=== PATIENT | female | born 1960 | race Caucasian/White ===

== ENCOUNTER 2017-06-08 05:32 | Outpatient (CLI) | payer BC ==
[~2017-06-08] VITALS: Ht 149.9 cm; Wt 108.9 kg
[~2017-06-08 05:32] MED LIST: ATEN50TA; DIPH25TA82; FAMO20TA5; FLUO20CA25; GABA100C; IBP600T1; LRT10T; LVT.05T PO; OMEG1CAP51; TRAM-21
[2017-06-08] MEDS ORDERED: ALPR0.5T PO (09:49)
[2017-06-08] MEDS ORDERED: OXC10TCR PO (09:49)
[2017-06-08] MEDS ORDERED: ATEN50TA PO (09:49)
[2017-06-08] MEDS ORDERED: LUTE1CAP4 PO (09:49)
[2017-06-08] MEDS ORDERED: MULT-985 PO (09:49)
[2017-06-08] MEDS ORDERED: CALC-823 PO (09:49)
[2017-06-08] MEDS ORDERED: FLUO20CA42 PO (09:49)
[2017-06-08] MEDS ORDERED: TRAM50TA2 PO (09:49)
[2017-06-08] MEDS ORDERED: LEVO50TA6 PO (09:49)
[2017-06-08] MEDS ORDERED: TURM500C4 PO (09:49)
[2017-06-08] MEDS ORDERED: BRIN8DRO OP (09:49)
[2017-06-08] MEDS ORDERED: OMEP20CA12 PO (09:49)
[2017-06-08] MEDS ORDERED: DIPH25TA31 PO (09:49)
[2017-06-08] MEDS ORDERED: LORA10TA7 PO (09:49)
[2017-06-08] MEDS ORDERED: ASPI-586 PO (09:49)
[2017-06-08] MEDS ORDERED: L.AC1CAP6 PO (09:49)
[2017-06-08] MEDS ORDERED: MELO15TA39 PO (09:49)
[2017-06-08] MEDS ORDERED: GABA-488 PO (09:49)
[2017-06-08] MEDS ORDERED: MULT-35 PO (09:49)
== END 2017-06-08 09:57 ==
LOC: PREOP 05:32
PROVIDERS: ATTEND Surgery
DX: Z01.818 Encounter for other preprocedural examination (principal); R13.10 Dysphagia, unspecified; K21.9 Gastro-esophageal reflux disease without esophagitis

== ENCOUNTER 2017-06-15 09:54 | Day surgery (SDC) | payer BC ==
[~2017-06-15] VITALS: Ht 149.9 cm; Wt 108.9 kg
[~2017-06-15 09:54] MED LIST changes: +ALPR0.5T PO; +ASPI-586 PO; +ATEN50TA PO; +BRIN8DRO OP; +CALC-823 PO; +DIPH25TA31 PO; +FLUO20CA42 PO; +GABA-488 PO; +L.AC1CAP6 PO; +LEVO50TA6 PO; +LORA10TA7 PO; +LUTE1CAP4 PO; +MELO15TA39 PO; +MULT-35 PO; +MULT-985 PO; +OMEP20CA12 PO; +OXC10TCR PO; +TRAM50TA2 PO; +TURM500C4 PO
--- NOTE | 2017-06-15 10:05 | Conscious Sedation/ASA ---
Conscious Sedation Pre-Proced Time Reviewed: 10:00 ASA Class: 2 Airway Mallampati Classification: (lower [place] appropriate class) I. II. III, IV Lungs Heart ASA score ASA 1: a normal healthy patient ASA 2: a patient with a mild systemic disease (mid diabetes, controlled hypertension, obesity ASA 3: a patient with a severe systemic disease that limits activity (angina , COPD, prior Myocardial infarction) ASA 4: a patient with an incapacitating disease that is a constant threat to life (CHF, renal failure) ASA 5: a moribund patient not expected to survive 24 hrs. (ruptured aneurysm) ASA 6: a declared brain patient whose organs are being harvested. For emergent operations, add the letter E after the classification Grade 3 Sedation Plan: Analgesia, Amnesia, Plan communicated to team members, Discussed options with patient/fam, Discussed risks with patient/fam Note The patient is an appropriate candidate to undergo the planned procedure, sedation, and anesthesia. The patient immediately re-assessed prior to indication. AUGIE SETHI MD Jun 15, 2017 10:05 am
--- NOTE | 2017-06-15 10:06 | Progress Note-Pre Operative ---
Pre-Operative Progress Note H&P Reviewed The H&P was reviewed, patient examined and no changes noted. Date Seen by Provider: Jun 15, 2017 Time Seen by Provider: 10:00 Date H&P Reviewed: Jun 15, 2017 Time H&P Reviewed: 10:00 Pre-Operative Diagnosis: dysphagia AUGIE SETHI MD Jun 15, 2017 10:06 am
[2017-06-15] MEDS ORDERED: LIDOCAINE JELLY 2% (XYLOCAINE) 5 ML TUBE MM PRN (10:15)
[2017-06-15] MEDS ORDERED: HURRICAINE EXT TUBE (BENZOCAINE) XX PRN (10:15)
[2017-06-15] MEDS ORDERED: ONDANSETRON 4 MG/2 ML (SDV) Z0FRAN IV PRN (10:15)
[2017-06-15] MEDS ORDERED: HYDROcodone/APAP 5 MG/325 MG (LORTAB) TAB PO PRN (10:15)
[2017-06-15] MEDS ORDERED: ACETAMINOPHEN 325 MG TABLET/CAPLET (TYLENOL) PO PRN (10:15)
[2017-06-15] MEDS ORDERED: fentaNYL INJECTION 100 MCG/2 ML AMP IVP PRN (10:15)
[2017-06-15 10:18] VITALS: BP 168/94
[2017-06-15] MEDS ORDERED: HURRICAINE EXT TUBE (BENZOCAINE) ONE (10:29)
[2017-06-15] MEDS ORDERED: LIDOCAINE JELLY 2% (XYLOCAINE) 5 ML TUBE ONE (10:29)
[2017-06-15] MEDS ORDERED: MIDAZOLAM 2 MG/2 ML (VERSED) VIAL ONE ×4 (10:29)
[2017-06-15] MEDS ORDERED: fentaNYL INJECTION 100 MCG/2 ML AMP ONE (10:29)
[2017-06-15] MEDS ORDERED: NS IV 500 ML 500 ML IV PRN (10:30)
[2017-06-15] MEDS: fentaNYL INJECTION 100 MCG/2 ML AMP IVP PRN ×2 (10:59→11:11)
[2017-06-15] MEDS: MIDAZOLAM 2 MG/2 ML (VERSED) VIAL IVP PRN ×3 (11:00→11:15)
--- NOTE | 2017-06-15 11:34 | Progress Note-Post Operative ---
Post-Operative Progess Note Surgeon (s)/Larriman (s) Surgeon AUGIE SETHI MD Larriman: none Pre-Operative Diagnosis dysphagia Post-Operative Diagnosis achalasia, reflux esophagitis(class B), no HH, mild gastritis. Procedure & Operative Findings Date of Procedure 06/15/17 Procedure Performed/Findings EGD with bx and dilatation. Anesthesia Type CS Estimated Blood Loss Estimated blood loss (mL): minimal Specimens/Packing Specimens Removed GE jxn, antrum AUGIE SETHI MD Jun 15, 2017 11:34 am
--- NOTE | 2017-06-15 11:36 | Discharge Inst-Surgical ---
D/C Lap Instructions-JOSSIE Follow Up PRN Activity as tolerated High Fiber Diet 25g or more per day Avoid Alcohol, Caffeine, Spicy [place] and Acid foods. Drink 64 fluid oz or more of fluids per day. Symptoms to Report: Fever over 101 degree F, Nausea/Vomiting If any problems/questions: Contact your physician or go to Emergency Room AUGIE SETHI MD Jun 15, 2017 11:36 am
[2017-06-15 11:50] VITALS: BP 144/86
[2017-06-15 12:20] VITALS: BP 130/51
[2017-06-15 12:25] VITALS: BP 130/51
--- NOTE | 2017-06-16 11:03 | OPERATIVE REPORT ---
DATE OF SERVICE: 06/15/2017 ATTENDING PRIMARY CARE PHYSICIAN: Flaquita Forde MD PREOPERATIVE DIAGNOSIS: Dysphagia. POSTOPERATIVE DIAGNOSES: Distal esophageal contraction most likely an achalasia. Reflux esophagitis class B. No hiatal hernia. Mild gastritis. PROCEDURE: EGD with biopsy and balloon dilatation. SURGEON: Augie Sethi MD ANESTHESIA: Conscious sedation. ESTIMATED BLOOD LOSS: Minimal. FINDINGS: Constant contraction of the lower esophageal sphincter with no relaxation. There were no anatomic strictures. Reflux esophagitis class B. No hiatal hernia, mild gastritis. No ulcers, polyps or any neoplasms. Pylorus and duodenum appeared normal with no distal obstructions. DISPOSITION: The patient tolerated the procedure well. INDICATION FOR THE PROCEDURE: The patient is a 57-year-old female who reports that she has had issues with dysphagia for the past eight years. She reports that this was initially mild; however, has slowly progressed to the point where she will take in a bolus of food and it will not go down and cause substernal pressure sensation. She then reports that this will either reduce on its own or come up. She reports that this is on an intermittent basis. She does report mild symptoms of reflux and is currently on Protonix. DESCRIPTION OF PROCEDURE: The patient was brought to the endoscopy suite, laid in the left lateral decubitus position with the head slightly elevated. After adequate IV pain and sedating medications and conscious sedation anesthesia, the mouthpiece was applied. The endoscope was then placed in the mouth visualizing the pharynx and hypopharyngeal region. Vocal cords, epiglottis and vallecula identified and appeared to be normal. The endoscope was then gently intubated at the esophageal opening, esophagus insufflated. The endoscope was then advanced to the first, second and third portions of the esophagus. At the level of the GE junction, the lower esophageal sphincter appeared to be constantly contracted. There is no anatomic obstruction including no strictures or other lesions nor any neoplasms. A reflux esophagitis class B identified. A biopsy was taken of the GE junction with forceps with visualization of good hemostasis. The endoscope was then advanced into the stomach and the endoscope retroflexed. No hiatal hernia was identified. There was mild gastritis noted. There were no ulcers, polyps or any neoplasms identified. A biopsy was taken of the antrum for H. pylori with forceps with visualization of good hemostasis. The endoscope was then advanced to the pylorus and the first and second portion of duodenum, which appeared normal with no distal obstructions. We then decided to proceed with dilatation of what appeared to be an esophageal achalasia. A CRE fixed guidewire balloon was placed in the stomach and pulled back to the area of the distal esophagus near the lower esophageal sphincter. The balloon was then dilated to 3 atmospheres of pressure 18 mm with minimal resistance. We then proceeded to 4.5 atmospheres of pressure with mild resistance. We then proceeded to 6 atmospheres of pressure or 2 cm in diameter with mild to moderate resistance identified. This was left in place for 60 seconds. The balloon was then decompressed and removed. No mucosal tears or any bleeding identified. The endoscope was then slowly withdrawn while taking a second look and suctioning of residual air with no additional findings. The patient tolerated the procedure well. We will have her continue with medical management with the necessary lifestyle and diet accommodation including small and more frequent meals, avoidance of eating at night as well as head elevation while lying supine. She also needs to avoid caffeinated beverages, spicy, greasy and acidic foods and proceed with weight management techniques as well. Job ID: [id number] DocumentID: [id number] Dictated Date: 06/15/2017 11:47:53 Chart Snatcher Date: 06/15/2017 16:44:45 Dictated By: AUGIE SETHI MD
== END 2017-06-15 12:25 | disposition home or self-care (01) ==
LOC: ENDO 09:54
PROVIDERS: ATTEND Surgery
DX: K22.0 Achalasia of cardia (principal); K21.0 Gastro-esophageal reflux disease with esophagitis; K29.60 Other gastritis without bleeding; I10 Essential (primary) hypertension; E03.9 Hypothyroidism, unspecified; F41.9 Anxiety disorder, unspecified; F32.9 Major depressive disorder, single episode, unspecified; Z86.73 Personal history of transient ischemic attack (TIA), and cerebral infarction without residual deficits; Z79.899 Other long term (current) drug therapy; Z79.82 Long term (current) use of aspirin

== ENCOUNTER → 2017-08-02 | Outpatient (CLI) | payer BC ==
--- NOTE | 2017-08-02 11:35 | Diagnostic Imaging Report ---
EXAMINATION: Bilateral diagnostic mammogram with tomography evaluation. The current study was also evaluated with a Computer Aided Detection (CAD) system. COMPARISON: 06/30/2016. INDICATION: Followup calcifications in the right breast. FINDINGS: A group of calcifications is again seen in the upper aspect of the right breast, loosely clustered with no significant change from June 2016. No adverse development, suggestive of benign etiology. Other calcifications are also benign. Background scattered fibroglandular densities are noted. No suspicious mass or architectural distortion. IMPRESSION: No mammographic evidence of malignancy. Annual screening mammograms are recommended. ACR BI-RADS Category 2: Benign findings. Result letter will be mailed to the patient. Note: At least 10% of breast cancer is not imaged by mammography. Dictated by: Dictated on workstation # [id number]
== END ==
LOC: RAD 07:25
PROVIDERS: ATTEND Nurse Practitioner Family
DX: R92.1 Mammographic calcification found on diagnostic imaging of breast (principal)
CPT/HCPCS: 77066

== ENCOUNTER → 2017-09-26 | Outpatient (CLI) | payer BC ==
--- NOTE | 2017-09-26 14:33 | Diagnostic Imaging Report ---
INDICATION: Chest congestion and wheezing. TIME OF EXAM: 2:05 PM Comparison is made with prior study from 10/26/2012. FINDINGS: Heart is enlarged but stable. The lungs are clear. No infiltrate or failure is seen. No effusion or pneumothorax is identified. IMPRESSION: Stable chest. No acute feature is detected. Dictated by: Dictated on workstation # [id number]
== END ==
LOC: RAD 13:35
PROVIDERS: ATTEND Nurse Practitioner Family
DX: R05 Cough (principal)
CPT/HCPCS: 71046

== ENCOUNTER → 2017-10-25 | Outpatient (CLI) | payer BC ==
[~2017-10-25] MED LIST changes: +CATHETER FLUSH 10 ML SYR IV PRN; +IOHEXOL 350 MG/ML 150 ML (OMNIPAQUE 350) VIAL IV ONE; +NS 100 ML (IVPB) BAG IV ONE
[2017-10-25 16:49] LABS: BUN/CREATININE RATIO 34; CREATININE SERUM 0.68 MG/DL (0.60-1.30); GFR ESTIMATED > 60
--- NOTE | 2017-10-25 17:41 | Diagnostic Imaging Report ---
PROCEDURE: CT angiography of the chest with contrast. TECHNIQUE: Multiple contiguous axial images were obtained through the chest after uneventful bolus administration of intravenous contrast. Reconstructed CTA MIP acquisitions were also performed. INDICATION: Leg swelling, shortness of air and dyspnea. CONTRAST: 100 mL of Omnipaque 350. COMPARISON STUDIES: Chest radiograph from 09/26/17 and a venous Doppler from today. FINDINGS: CTA of the chest demonstrates no pulmonary emboli, aortic dissection or aneurysm. No pleural or pericardial effusions are present. Mildly enlarged mediastinal lymph nodes are present. There is a pretracheal lymph node measuring 9 x 18 mm. AP window lymph node measures 13 x 8 mm. A right hilar lymph node measures 19 x 14 mm. Heart size is normal. Large gallstones are present in the gallbladder. No ductal dilatation or inflammation is seen. The lungs are clear. The osseous structures demonstrate minimal degenerative changes. No metastatic disease is present. IMPRESSION: 1. There are mildly enlarged mediastinal lymph nodes. 2. No pulmonary emboli, aortic dissection or aneurysm is present. 3. Cholelithiasis. Dictated by: Dictated on workstation # [id number]
--- NOTE | 2017-10-25 18:40 | Diagnostic Imaging Report ---
INDICATION: Leg swelling. Venous Doppler lower extremities. FINDINGS: Duplex ultrasound of the venous systems of lower extremities was done with grayscale, spectral waveform and color Doppler flow analysis. The veins were compressible and had normal spontaneous and augmented flow. IMPRESSION: Negative venous Doppler of lower extremities. Dictated by: Dictated on workstation # [id number]
== END ==
LOC: RAD 16:21
PROVIDERS: ATTEND Nurse Practitioner Family
DX: K80.20 Calculus of gallbladder without cholecystitis without obstruction (principal); R59.0 Localized enlarged lymph nodes; M79.89 Other specified soft tissue disorders; R06.00 Dyspnea, unspecified; R06.02 Shortness of breath
CPT/HCPCS: 36415; 71275; 82565; 84520; 93970

== ENCOUNTER → 2017-11-02 | Outpatient (CLI) | payer BC ==
[~2017-11-02] MED LIST changes: -CATHETER FLUSH 10 ML SYR IV PRN; -IOHEXOL 350 MG/ML 150 ML (OMNIPAQUE 350) VIAL IV ONE; -NS 100 ML (IVPB) BAG IV ONE; +RT-ALBUTEROL SULF 2.5 MG/3 ML PRE-MIX VIAL INH ONE
== END ==
LOC: RT 08:26
PROVIDERS: ATTEND Nurse Practitioner Family
DX: J42 Unspecified chronic bronchitis (principal); R06.00 Dyspnea, unspecified
CPT/HCPCS: 94060; 94726; 94729

== ENCOUNTER → 2017-12-15 | Outpatient (CLI) | payer BC ==
[~2017-12-15] MED LIST changes: -RT-ALBUTEROL SULF 2.5 MG/3 ML PRE-MIX VIAL INH ONE
[2017-12-15 12:42] LABS: ABG BASE EXCESS 2.1 MMOL/L (-2.5-2.5); ABG OXYGEN SATURATION 94 % (94-100); ABG PCO2 46 MMHG (35-45); ABG PH 7.38 (7.37-7.43); ABG PO2 71 MMHG (79-93); ABG TCO2 28.1 MMOL/L (21.0-31.0); ALLENS TEST YES-POS; INSPIRED O2 ROOM AIR; PATIENT TEMP 98.2; VENTILATOR NO
== END ==
LOC: LAB 12-06 14:40
PROVIDERS: ATTEND Nurse Practitioner Family
DX: J98.4 Other disorders of lung (principal)
CPT/HCPCS: 36600; 82805

== ENCOUNTER → 2018-07-25 | Outpatient (CLI) | payer BC ==
--- NOTE | 2018-07-26 08:13 | Diagnostic Imaging Report ---
INDICATION: Screening. EXAMINATION: Digital mammogram bilateral screening with 3-D tomosynthesis. This study was compared to the prior exam of 08/02/2017, 06/30/2016 and 07/17/2015. At this time, there are no current complaints. The current study was also evaluated with a Computer Aided Detection (CAD) system. FINDINGS: There are scattered fibroglandular densities in both breasts which could obscure a lesion. Overall, there does not appear to have been any significant change when compared to the prior exam. No primary or secondary sign of malignancy is noted. IMPRESSION: There is no radiographic evidence for malignancy. ACR BI-RADS Category 1: Negative. Result letter will be mailed to the patient. Note: At least 10% of breast cancer is not imaged by mammography. Dictated by: Dictated on workstation # [id number]
== END ==
LOC: RAD 14:56
PROVIDERS: ATTEND Nurse Practitioner Family
DX: Z12.31 Encounter for screening mammogram for malignant neoplasm of breast (principal)
CPT/HCPCS: 77067

== ENCOUNTER → 2019-06-19 | Outpatient (CLI) | payer MEDICARE, OTHER ==
[~2019-06-19] MED LIST changes: -OMEP20CA12 PO; +OMEP20CA13 PO
--- NOTE | 2019-06-19 16:13 | Diagnostic Imaging Report ---
INDICATION: Screening The current study was also evaluated with a Computer Aided Detection (CAD) system. 3-D Tomographic imaging was also performed. COMPARISON is made to prior examination of 07/25/2019, 08/02/2017 and 06/30/2016 FINDINGS: There are scattered fibroglandular densities bilaterally. There is a questionable nodular density in the lateral aspect of the right breast in the CC projection. There are scattered benign type calcifications. There is no other dominant mass, spiculated lesion or suspicious calcification identified. IMPRESSION: Category 0, further imaging needed. Questionable nodular density in the lateral aspect of the right breast CC projection. Evaluation with spot compression views and, if warranted, ultrasound is recommended. Dictated by: Dictated on workstation # [id number]
== END ==
LOC: RAD 12:38
PROVIDERS: ATTEND Nurse Practitioner Family
DX: Z12.31 Encounter for screening mammogram for malignant neoplasm of breast (principal)
CPT/HCPCS: 77067

== ENCOUNTER → 2019-06-27 | Outpatient (CLI) | payer MEDICARE, OTHER ==
--- NOTE | 2019-06-27 14:05 | Diagnostic Imaging Report ---
INDICATION: Right breast density. Patient presents for additional views. COMPARISON: Correlation is made with the screening mammogram from 06/19/2019. TECHNIQUE: Unilateral right 2D and 3D diagnostic mammography was performed including spot compression CC, conventional CC, rolled CC, and mediolateral views. FINDINGS: There is a persistent tiny density just below the skin surface in the lateral aspect of the right breast at anterior depth approximately 5 to 7 cm from the nipple. No suspicious calcifications are seen. IMPRESSION: Tiny residual density in the lateral right breast at anterior depth just below the skin surface. Further evaluation of this area with ultrasound is recommended and will be performed today. ACR BI-RADS Category 0: Incomplete. (Needs additional imaging evaluation). Result letter will be mailed to the patient. Note: At least 10% of breast cancer is not imaged by mammography. Dictated by: Dictated on workstation # [id number]
--- NOTE | 2019-06-27 14:56 | Diagnostic Imaging Report ---
INDICATION: Right breast density. COMPARISON: Correlation is made with diagnostic mammogram earlier the same day and screening mammogram from 06/19/2019. FINDINGS: Sonographic interrogation of the outer right breast was performed. There is a tiny hypoechoic nodule just below the skin surface at the 10 o'clock location of the right breast, approximately 7 cm from the nipple. This likely accounts for the mammographic density. This has benign features. This measures approximately 4 mm x 2 mm in size. No other suspicious mass is seen. IMPRESSION: Tiny benign-appearing nodule at the 10 o'clock location of the right breast, 7 cm from the nipple, likely accounting for the mammographic density. No concerning sonographic findings are seen. The patient may return to routine annual screening mammography. ACR BI-RADS Category 2: Benign findings. Dictated by: Dictated on workstation # [id number]
== END ==
LOC: RAD 13:33
PROVIDERS: ATTEND Nurse Practitioner Family
DX: R92.2 Inconclusive mammogram (principal)

== ENCOUNTER → 2020-06-20 | Outpatient (CLI) | payer MEDICARE, OTHER ==
[~2020-06-20] MED LIST changes: -OMEP20CA13 PO; +OMEP20CA18 PO; -TRAM50TA2 PO; +TRM50T PO
--- NOTE | 2020-06-20 17:22 | Diagnostic Imaging Report ---
INDICATION: Routine screening. COMPARISON is made with prior mammograms of 06/19/2019 and 07/25/2018. 2-D and 3-D bilateral screening mammography was performed with CAD. Scattered fibroglandular densities are identified bilaterally. The parenchymal pattern is stable. There are benign calcifications. No mass or malignant appearing microcalcifications are seen. Axillae are unremarkable. IMPRESSION: BI-RADS Category 2. No mammographic features suspicious for malignancy are identified. ACR BI-RADS Category 2: Benign findings. Result letter will be mailed to the patient. Note: At least 10% of breast cancer is not imaged by mammography. Dictated by: Dictated on workstation # [id number]
== END ==
LOC: RAD 14:45
PROVIDERS: ATTEND Family Medicine
DX: Z12.31 Encounter for screening mammogram for malignant neoplasm of breast (principal)
CPT/HCPCS: 77063; 77067

== ENCOUNTER 2020-12-22 05:30 | Outpatient (RCR) | payer MEDICARE, OTHER ==
[~2020-12-22] VITALS: Ht 147.3 cm; Wt 113.5 kg
[~2020-12-22 05:30] MED LIST changes: +ASPI-999 PO; +CETI10TA17 PO; +CHOL20003 PO; +GBPN600T PO; +GLBR2.5T PO
== END 2020-12-22 10:08 | disposition home or self-care (01) ==
LOC: PREOP 05:30
PROVIDERS: ATTEND Surgery
DX: Z01.812 Encounter for preprocedural laboratory examination (principal); R13.10 Dysphagia, unspecified; Z20.822 Contact with and (suspected) exposure to COVID-19; Z86.010 Personal history of colon polyps
CPT/HCPCS: 87635

== ENCOUNTER 2020-12-24 10:15 | Day surgery (SDC) | payer MEDICARE, OTHER ==
[~2020-12-24] VITALS: Ht 155 cm; Wt 113.5 kg
[2020-12-24] MEDS ORDERED: LACTATED RINGERS 1,000 ML IV STA (10:28)
[2020-12-24] MEDS ORDERED: LACTATED RINGERS 1,000 ML IV ONE (10:29)
[2020-12-24] MEDS ORDERED: LIDOCAINE JELLY 2% 6 ML SYRINGE MM PRN (10:30)
[2020-12-24] MEDS ORDERED: HURRICAINE EXT TUBE (BENZOCAINE) XX PRN (10:30)
[2020-12-24 10:41] VITALS: BP 177/77
--- NOTE | 2020-12-24 10:48 | Progress Note-Pre Operative ---
Pre-Operative Progress Note H&P Reviewed The H&P was reviewed, patient examined and no changes noted. Date Seen by Provider: December 24, 2020 Time Seen by Provider: 10:40 Date H&P Reviewed: December 24, 2020 Time H&P Reviewed: 10:40 Pre-Operative Diagnosis: dysphagia/GERD, screening AUGIE SETHI MD December 24, 2020 10:48
[2020-12-24] MEDS ORDERED: PANT40TA2 PO (10:49)
--- NOTE | 2020-12-24 10:50 | Discharge Inst-Surgical ---
D/C Lap Instructions-KIDO New, Converted, or Re-Newed RX: RX on Chart Follow Up Appt in 2 weeks Activity as tolerated High Fiber Diet 25g or more per day Avoid Alcohol, Caffeine, Spicy [place] and Acid foods. Drink 64 fluid oz or more of fluids per day. Symptoms to Report: Fever over 101 degree F, Nausea/Vomiting If any problems/questions: Contact your physician or go to Emergency Room AUGIE SETHI MD December 24, 2020 10:50
[2020-12-24] MEDS ORDERED: ACETAMINOPHEN 325 MG TABLET PO PRN (11:00)
[2020-12-24] MEDS ORDERED: HYDROcodone/APAP 5 MG/325 MG (LORTAB) TAB PO PRN (11:00)
[2020-12-24] MEDS ORDERED: ONDANSETRON 4 MG/2 ML (SDV) Z0FRAN IVP PRN (11:00)
[2020-12-24] MEDS ORDERED: PROPOFOL INJECTION 50 ML IV ONE (11:26)
[2020-12-24] MEDS ORDERED: MIDAZOLAM 2 MG/2 ML (VERSED) VIAL ONE (11:29)
[2020-12-24] MEDS ORDERED: HURRICAINE EXT TUBE (BENZOCAINE) ONE (11:30)
[2020-12-24] MEDS ORDERED: LIDOCAINE JELLY 2% 6 ML SYRINGE ONE (11:30)
[2020-12-24 12:15] VITALS: BP 130/64
[2020-12-24 12:20] VITALS: BP 158/87
--- NOTE | 2020-12-24 12:32 | Progress Note-Post Operative ---
Post-Operative Progess Note Surgeon (s)/Liquor Store Manager (s) Surgeon AUGIE SETHI MD Liquor Store Manager: none Pre-Operative Diagnosis dysphagia/GERD, screening Post-Operative Diagnosis reflux esophagitis(stage 2), mild distal esoph stricture, mild-mod gastritis. mild chronic stage 2 ext and int hemorrhoids. Procedure & Operative Findings Date of Procedure 12/24/20 Procedure Performed/Findings EGD with bx and balloon dilatation. colonoscopy Anesthesia Type mac Estimated Blood Loss Estimated blood loss (mL): minimal Specimens/Packing Specimens Removed ge jxn, antrum AUGIE SETHI MD December 24, 2020 12:32
[2020-12-24 12:45] VITALS: BP 161/86
[2020-12-24 13:00] VITALS: BP 161/86
--- NOTE | 2020-12-24 13:13 | Anesthesia-General Post-Op ---
MAC Patient Condition Mental Status/LOC: Same as Preop Cardiovascular: Satisfactory Nausea/Vomiting: Absent Respiratory: Satisfactory Pain: Controlled Complications: Absent Post Op Complications Complications None Follow Up Care/Instructions Patient Instructions None needed. Anesthesiology Discharge Order Discharge Order Patient is doing well, no complaints, stable vital signs, no apparent adverse anesthesia problems. No complications reported per nursing. BRYCE JONES CRNA December 24, 2020 13:13
--- NOTE | 2020-12-24 19:08 | OPERATIVE REPORT ---
DATE OF SERVICE: 12/24/2020 ATTENDING PRIMARY CARE PHYSICIAN: Dr. Flaquita Forde. PREOPERATIVE DIAGNOSES: Dysphagia, gastroesophageal reflux disease, history of colon polyp. POSTOPERATIVE DIAGNOSES: Reflux esophagitis stage II with a mild distal esophageal stricture. No significant hiatal hernia, mild to moderate gastritis. No distal obstructions. Mild chronic stage II external and internal hemorrhoids, no polyps identified. DISPOSITION: The patient tolerated the procedure well. INDICATIONS: The patient is a 60-year-old female known to us. We had seen her in 2017 for dysphagia and proceeded with an EGD as well as a balloon dilatation. She reported that she did have some relief after that. She was recently seen in the office and reports a 6-month history of dysphagia and epigastric fullness sensation as well as a sensation of choking on some foods, especially with more dry foods like lean chicken. She also does have a longstanding history of gastroesophageal reflux disease. She also reports that her last colonoscopy was in 2013 and a polyp was identified and found to be benign. She does not report any red blood per rectum nor any dark tarry stools as well as no family history of colon cancer. DESCRIPTION OF PROCEDURE: The patient was brought to the endoscopy suite, laid in the left lateral decubitus position. After adequate IV pain and sedative medications and monitored anesthesia care, the mouthpiece was applied. The endoscope was placed in the mouth, visualizing the pharynx and hypopharyngeal region. Vocal cords, epiglottis and vallecula identified and appeared to be normal. The endoscope was gently intubated at the esophageal opening and esophagus insufflated. The endoscope was then advanced through the first, second and third portion of esophagus at the level of the GE junction, reflux esophagitis stage II identified. There was also a mild distal esophageal stricture identified. A biopsy was taken of the GE junction with forceps with visualization of good hemostasis. The endoscope was then advanced into the stomach and endoscope retroflexed visualizing no significant hiatal hernia. There was a mild to moderate gastritis. No formal ulcerations, polyps, or any neoplasms. A biopsy was taken of the antrum to rule out H. pylori with visualization of good hemostasis. The endoscope was then advanced to the pylorus and the first and second portion of the duodenum, which appeared normal with no distal obstructions. We then proceeded with balloon dilatation of distal esophageal stricture and the balloon was placed into the stomach and pulled back to the area of the stricture. We then proceeded in a gradual stepwise fashion to 2, then 4, then eventually 6 atmospheres of pressure or 20 mm in luminal diameter with moderate resistance and left this in place for approximately 60 seconds. The balloon was then desufflated and removed with visualization of good hemostasis as well as no mucosal tears. The endoscope was then slowly withdrawn while taking a second look and suctioning of residual air with no additional findings. We then proceeded with the colonoscopy portion of procedure. Digital rectal examination was performed, which revealed mild chronic stage II external and internal hemorrhoids, not actively edematous nor inflamed and no bleeding. Normal sphincter tone was felt and there were no palpable masses. The endoscope was then intubated to the anus and rectum gently insufflated. The endoscope was then advanced through the valves of [place] of the rectum with no polyps or any neoplasms. Through the sigmoid colon, there were no significant diverticulosis identified. We then proceeded through the remainder of the descending, transverse and ascending colon to the cecum. These segments were normal. There were no polyps or any neoplasms identified throughout the colon or rectum. The endoscope was then slowly withdrawn while taking a second look and suctioning of residual air with no additional findings. The patient tolerated the procedure well. We will recommend the necessary lifestyle and diet accommodation including small and more frequent meals, avoidance of eating at night as well as head elevation while lying supine. She also needs to avoid caffeinated beverages, spicy, greasy and acidic foods. Any modality of regularly scheduled diet and exercise and weight loss will also significantly help with her reflux type of symptoms as well as recurrent strictures and dysphagia. We will also recommend the incorporation of a fiber supplement and should equal or exceed 25 grams daily to promote soft stools on a daily basis as a preventative measure for the development of any colonic lesions. If she is asymptomatic, she does not need another colonoscopy for another 10 years. Job ID: [id number] DocumentID: [id number] Dictated Date: 12/24/2020 12:20:14 Bank Appraiser Date: 12/24/2020 19:07:41 Dictated By: AUGIE SETHI MD
== END 2020-12-24 12:59 | disposition home or self-care (01) ==
LOC: ENDO 10:15
PROVIDERS: ATTEND Surgery
DX: Z12.11 Encounter for screening for malignant neoplasm of colon (principal); K22.2 Esophageal obstruction; K21.00 Gastro-esophageal reflux disease with esophagitis, without bleeding; K29.50 Unspecified chronic gastritis without bleeding; K64.1 Second degree hemorrhoids; K64.4 Residual hemorrhoidal skin tags; M19.90 Unspecified osteoarthritis, unspecified site; I10 Essential (primary) hypertension; E03.9 Hypothyroidism, unspecified; G47.33 Obstructive sleep apnea (adult) (pediatric); E66.01 Morbid (severe) obesity due to excess calories; E11.9 Type 2 diabetes mellitus without complications; F32.9 Major depressive disorder, single episode, unspecified; F41.9 Anxiety disorder, unspecified; Z86.010 Personal history of colon polyps; Z86.73 Personal history of transient ischemic attack (TIA), and cerebral infarction without residual deficits; Z90.710 Acquired absence of both cervix and uterus; Z88.5 Allergy status to narcotic agent; Z90.89 Acquired absence of other organs; Z20.822 Contact with and (suspected) exposure to COVID-19; Z79.82 Long term (current) use of aspirin; Z79.84 Long term (current) use of oral hypoglycemic drugs; Z79.890 Hormone replacement therapy; Z99.89 Dependence on other enabling machines and devices; Z68.43 Body mass index [BMI] 50.0-59.9, adult
CPT/HCPCS: 43239; 43249; G0105

== ENCOUNTER → 2021-05-18 | Outpatient (CLI) | payer MEDICARE, OTHER ==
[~2021-05-18] MED LIST changes: +CATHETER FLUSH 10 ML SYR IV PRN; +HOLD METFORMIN - RECEIVED CONTRAST 20 ML VIAL IV SCH; +IOHEXOL 350 MG/ML 100 ML (OMNIPAQUE 350) VIAL IV ONE; +NS 100 ML (IVPB) BAG IV ONE; +PANT40TA2 PO; +RT-ALBUTEROL SULF 2.5 MG/3 ML PRE-MIX VIAL INH ONE
[2021-05-18 12:51] LABS: CREATININE SERUM 0.65 MG/DL (0.60-1.30)
--- NOTE | 2021-05-18 14:09 | Diagnostic Imaging Report ---
INDICATION: Hypoxia. TECHNIQUE: Multiple contiguous axial images were obtained through the chest after uneventful bolus administration of intravenous contrast. 3D reconstructed CTA MIP acquisitions were also performed. Auto Exposure Controls were utilized during the CT exam to meet ALARA standards for radiation dose reduction. COMPARISON: Comparison made to prior CTA chest of 10/25/2017. FINDINGS: The pulmonary parenchymal vessels are well opacified with no CT evidence of pulmonary emboli. The thoracic aorta shows no evidence of aneurysm or dissection. There are a few scattered borderline-sized nodes in mediastinum of uncertain significance. These findings, however, are stable compared to the previous study. There is no pleural or pericardial fluid. Visualized portions of the upper abdomen demonstrate multiple gallstones in the gallbladder. Lung parenchymal windows demonstrate no focal infiltrates or masses. IMPRESSION: Negative CTA chest. No evidence of pulmonary emboli or aortic dissection or aneurysm. There are borderline-sized nodes in the mediastinum and kendrick, which appear stable compared to the prior study. There is no new infiltrate or pleural fluid. Incidental gallstones are present in the gallbladder. Dictated by: Dictated on workstation # [id number]
--- NOTE | 2021-05-18 16:14 | Diagnostic Imaging Report ---
PROCEDURE: US Venous Lower Ext [place]. TECHNIQUE: Multiple real-time grayscale images were obtained over the lower extremities in various projections, bilaterally. Additional duplex Doppler and color Doppler images were also obtained. INDICATION: Shortness of breath. FINDINGS: There is no evidence of right or left lower extremity DVT. Both lower extremity deep venous systems demonstrate normal compressibility with normal response to augmentation and Valsalva. No fluid collection or mass is detected. IMPRESSION: No evidence of right or left lower extremity DVT. Dictated by: Dictated on workstation # [id number]
--- NOTE | 2021-05-18 16:34 | Diagnostic Imaging Report ---
PROCEDURE: CT sinuses without contrast TECHNIQUE: Multiple contiguous axial images were obtained through the sinuses without the use of intravenous contrast. Coronal and sagittal reformations were then performed. Auto Exposure Controls were utilized during the CT exam to meet ALARA standards for radiation dose reduction. INDICATION: Recurrent sinusitis. COMPARISON: None. FINDINGS: Near complete opacification of the left maxillary sinus with air-fluid level. Smaller air-fluid level in the left frontal sinus. There is also mucosal thickening within the anterior left ethmoid air cells. There is occlusion of both the left frontal recess and left maxillary ostium. There is a particularly large left anterior ethmoid air cell measuring up to 1.9 cm which may be contributing to the obstruction. Moderate rightward bowing of the nasal septum. The paranasal sinuses are otherwise clear. The mastoids and middle ears are clear. No fractures. Partially visualized volume loss in the parasagittal right frontal lobe. IMPRESSION: 1. Ostiomeatal unit obstructive pattern of the left frontal, maxillary and ethmoid sinuses. This is greatest in the left maxillary sinus where there is near complete occlusion by an air-fluid level. There is a particularly large left anterior ethmoid air cell which may be contributing to the obstruction. 2. Partially visualized encephalomalacia in the parasagittal right frontal lobe may be due to an old infarct. Recommend correlation with history. This could be further evaluated with MRI if clinically warranted. Dictated by: Dictated on workstation # [id number]
== END ==
LOC: RT 11:00
PROVIDERS: ATTEND Nurse Practitioner Family
DX: J98.4 Other disorders of lung (principal); J32.9 Chronic sinusitis, unspecified; G93.89 Other specified disorders of brain
CPT/HCPCS: 36415; 70486; 71275; 82565; 84520; 93970; 94060; 94726; 94729

== ENCOUNTER → 2021-06-30 | Outpatient (CLI) | payer MEDICARE, OTHER ==
[~2021-06-30] MED LIST changes: -CATHETER FLUSH 10 ML SYR IV PRN; -HOLD METFORMIN - RECEIVED CONTRAST 20 ML VIAL IV SCH; -IOHEXOL 350 MG/ML 100 ML (OMNIPAQUE 350) VIAL IV ONE; -NS 100 ML (IVPB) BAG IV ONE; -RT-ALBUTEROL SULF 2.5 MG/3 ML PRE-MIX VIAL INH ONE
--- NOTE | 2021-06-30 20:06 | Diagnostic Imaging Report ---
INDICATION: Routine screening. COMPARISON is made with prior mammograms from 06/20/2020 and 06/19/2019. 2-D and 3-D bilateral screening mammography was performed with CAD. Scattered fibroglandular densities are identified bilaterally. There are scattered benign calcifications in both breasts. No mass or malignant-appearing microcalcifications are seen. The axillae are unremarkable. IMPRESSION: BI-RADS Category 2 No mammographic features suspicious for malignancy are identified. ACR BI-RADS Category 2: Benign findings. Result letter will be mailed to the patient. Note: At least 10% of breast cancer is not imaged by mammography. Dictated by: Dictated on workstation # [id number]
== END ==
LOC: RAD 15:00
PROVIDERS: ATTEND Family Medicine
DX: Z12.31 Encounter for screening mammogram for malignant neoplasm of breast (principal)
CPT/HCPCS: 77063; 77067

== ENCOUNTER 2021-11-19 05:47 | Outpatient (CLI) | payer MEDICARE, OTHER ==
[~2021-11-19] VITALS: Ht 149.9 cm; Wt 107.2 kg
[~2021-11-19 05:47] MED LIST changes: +MULT-1054 PO; -MULT-985 PO
[2021-11-20] MEDS ORDERED: GBPN600T PO (11:09)
[2021-11-20] MEDS ORDERED: CELE200C PO (11:09)
[2021-11-20] MEDS ORDERED: FEXO180T84 PO (11:20)
== END 2021-11-20 11:21 | disposition home or self-care (01) ==
LOC: PREOP 05:47
PROVIDERS: ATTEND Surgery
DX: Z01.818 Encounter for other preprocedural examination (principal)

== ENCOUNTER 2021-11-26 10:00 | Inpatient (IN) | payer MEDICARE, OTHER ==
--- NOTE | 2021-11-20 09:55 | HISTORY AND PHYSICAL ---
DATE OF SERVICE: PROCEDURE DATE: 11/26/2021. ATTENDING PRIMARY CARE PHYSICIAN: Dr. Flaquita Forde. HISTORY OF PRESENT ILLNESS: The patient is a 61-year-old female who is known to us. She was seen in 2016 for dysphagia and underwent an EGD with biopsy and balloon dilatation on 06/15/2017 where she was found to have contractures of the lower esophageal sphincter with no relaxation. There was no anatomic strictures. There was reflux esophagitis class B with no hiatal hernia, but there was a mild gastritis. She was then seen in December of this year for recurrent dysphagia as well as reflux and history of polyps. Again, she was found to have reflux esophagitis stage II and mild distal esophageal stricture with no significant hiatal hernia. There was a mild to moderate gastritis as well as a mild chronic stage II external and internal hemorrhoids, no polyps identified. She was then seen for history of morbid obesity and is interested in the laparoscopic gastric sleeve resection and does meet the medical criteria for bariatric surgery. She reports that she has tried diets in the past such as high protein, low carbohydrate as well as a low calorie with minimal success. She also reports that she has tried exercises such as walking with no success. She reports that she has not tried any medications for weight loss. Her medical comorbidities related to obesity include degenerative joint disease, hypertension, gastroesophageal reflux disease, depression, anxiety, obstructive sleep apnea and type 2 diabetes. MEDICAL HISTORY: Degenerative joint disease, hypertension, gastroesophageal reflux disease, hypothyroidism, depression, anxiety, stroke, type 2 diabetes, exertional shortness of breath. PAST SURGICAL HISTORY: Rotator cuff repair 2008, complete hysterectomy in 2000, tonsillectomy in 1967, right eye surgery for what sounds to be a release of muscle in 1965. ALLERGIES: MORPHINE, TRAMADOL, OXYCODONE. MEDICATIONS: Aspirin 81 mg daily, atenolol 50 mg daily, omeprazole 20 mg b.i.d., gabapentin 600 mg q.i.d., 10 mg t.i.d., fluticasone 50 mcg one spray each nostril daily, Celebrex 200 mg 2 capsules daily, glimepiride 2 mg b.i.d., fluoxetine 20 mg daily, levothyroxine 50 mcg daily, zafirlukast 20 mg b.i.d., Ventolin inhaler p.r.n. SOCIAL HISTORY: Negative for tobacco smoke. Negative for alcohol. FAMILY HISTORY: Mother diabetes, lung cancer, myocardial infarction. Paternal grandfather, diabetes, stroke. Paternal grandmother, diabetes. Maternal grandmother, diabetes, hypertension, stroke, myocardial infarction. Father, hypertension, myocardial infarction. Brother, type 2 diabetes, testicular cancer, stroke. VITAL SIGNS: Blood pressure is 154/80. Current weight is 255.8 at 5 feet 0 inches with a body mass index of 49.95. REVIEW OF SYSTEMS: This is a well-nourished, obese female, in no acute distress. She is not experiencing any shortness of breath or difficulty breathing. No chest pain, palpitations or diaphoresis. No nausea, vomiting or abdominal pain. No diarrhea or constipation. No red blood per rectum. No dark tarry stools. No fever or chills. No recent inadvertent weight loss. All other review of systems negative. PHYSICAL EXAMINATION: CHEST: Clear. Good breath sounds bilaterally. HEART: Regular, no murmurs. EXTREMITIES: No lower extremity edema. Negative Homans sign. HEENT: No scleral icterus. NECK: No cervical lymphadenopathy. ABDOMEN: Soft, nontender, nondistended. SKIN: Warm, dry and pink. NEUROLOGIC: Awake, alert and oriented x3. ASSESSMENT AND PLAN: A 61-year-old female with morbid obesity and medical comorbidities related to obesity including degenerative joint disease, hypertension, gastroesophageal reflux disease, depression, anxiety, obstructive sleep apnea, and type 2 diabetes. She is interested in the laparoscopic gastric sleeve resection and does meet the medical criteria for bariatric surgery. At this time, she has completed all the necessary tests and evaluations including nutrition and psychology consult as well as received clearance from her darkroom technician as well as primary care physician. She is currently on a CPAP and did have a recent upper endoscopy. The risks and benefits of the procedure as well as the procedure and home care instructions were explained to the patient. It was also discussed with the patient about preoperative as well as postoperative diet and exercise regimen. She verbalized understanding of instructions and agrees to proceed as planned. At this time, we will proceed with scheduling her for the laparoscopic gastric sleeve resection. Job ID: [id number] DocumentID: [id number] Dictated Date: 11/20/2021 09:22:45 Weigher And Crusher Date: 11/20/2021 09:55:02 Dictated By: MARU STEPHENS APRN
[~2021-11-26] VITALS: Ht 149.9 cm; Wt 107.2 kg
[2021-11-26] VITALS (13 sets, daily range): BP systolic 139–182; BP diastolic 70–96
[~2021-11-26 10:00] MED LIST changes: +ALBU0.63 IH; +CELE200C PO; +FEXO180T84 PO; +RT-ALBUINH IH; +ZFR20T PO
--- NOTE | 2021-11-26 10:20 | Discharge Inst-Surgical ---
D/C Lap Instructions-[place] Reconcile Patient Problems Problems Reviewed?: Yes New, Converted, or Re-Newed RX: Other Follow Up Appt in 2 weeks Activity as tolerated No driving for 24 hours No driving while on pain medications Incentive Spirometry use every 2 hours while awake Clear liquid diet for 2 weeks Symptoms to Report: Fever over 101 degree F, Nausea/Vomiting Infection Signs and Symptoms to report: Increased redness, Foul odor of wound, Increased drainage Bathing instructions: May shower Operative Area Clean/Dry; Keep incision clean/dry If any problems/questions: Contact your physician or go to Emergency Room MARU STEPHENS APRN Nov 26, 2021 10:20
--- NOTE | 2021-11-26 10:21 | Progress Note-Pre Operative ---
Pre-Operative Progress Note H&P Reviewed The H&P was reviewed, patient examined and no changes noted. Date Seen by Provider: Nov 26, 2021 Time Seen by Provider: 10:20 Date H&P Reviewed: Nov 26, 2021 Time H&P Reviewed: 10:15 Pre-Operative Diagnosis: Morbid obesity, HTN, DM, MARCE MARU STEPHENS LADLE REPAIRMAN Nov 26, 2021 10:21
[2021-11-26] MEDS ORDERED: ceFAZolin 2 GM IV Premixed 50 ML IV ONE (10:30)
[2021-11-26] MEDS: LACTATED RINGERS 1,000 ML IV PRN ×3 (10:59→15:22)
[2021-11-26] MEDS ORDERED: ONDANSETRON 4 MG/2 ML (SDV) Z0FRAN IV PRN (11:30)
[2021-11-26] MEDS ORDERED: diphenhydrAMINE 50 MG/ML INJ (BENADRYL) IVP PRN (11:30)
[2021-11-26] MEDS ORDERED: fentaNYL INJ 1,000 MCG in NS (IVPB) 80 ML IV SCH (11:30)
[2021-11-26] MEDS ORDERED: NALOXONE 0.4 MG/ML 1 ML (NARCAN) VIAL IV PRN (11:30)
[2021-11-26] MEDS ORDERED: diphenhydrAMINE 50 MG/ML INJ (BENADRYL) IV PRN (11:30)
[2021-11-26] MEDS ORDERED: METOCLOPRAMIDE INJ 10 MG/2 ML (REGLAN) IV PRN (11:30)
[2021-11-26] MEDS ORDERED: NS IV 1000 ML 1,000 ML IV SCH (11:30)
[2021-11-26] MEDS ORDERED: LIDOCAINE/EPI 2% 1:100,00 (XYLOCAINE) 20 ML VIAL ONE (11:53)
[2021-11-26] MEDS ORDERED: ONDANSETRON 4 MG/2 ML (SDV) Z0FRAN IVP SCH (12:00)
[2021-11-26] MEDS ORDERED: METOCLOPRAMIDE INJ 10 MG/2 ML (REGLAN) IVP SCH (12:00)
[2021-11-26] MEDS ORDERED: LIDOCAINE PF 2% 5 ML (XYLOCAINE) VIAL ONE (12:29)
[2021-11-26] MEDS ORDERED: ONDANSETRON 4 MG/2 ML (SDV) Z0FRAN ONE ×2 (12:29→14:57)
[2021-11-26] MEDS ORDERED: NEOSTIGMINE 3 MG/3 ML VIAL ONE (12:29)
[2021-11-26] MEDS ORDERED: fentaNYL INJ 100 MCG/2 ML AMP ONE ×2 (12:29→15:17)
[2021-11-26] MEDS ORDERED: ROCURONIUM 10 MG/ML 5 ML SYRINGE IV ONE (12:29)
[2021-11-26] MEDS ORDERED: proPOfol 200 MG/20 ML (DIPRIVAN) VIAL IV ONE (12:29)
[2021-11-26] MEDS ORDERED: GLYCOPYRROLATE 0.2 MG/ML (ROBINUL) 2 ML VIAL ONE (12:29)
[2021-11-26] MEDS ORDERED: MIDAZOLAM 2 MG/2 ML (VERSED) VIAL ONE (12:29)
[2021-11-26] MEDS ORDERED: RT-ALBUTEROL SULF 2.5 MG/3 ML PRE-MIX VIAL INH SCH (14:00)
[2021-11-26] MEDS ORDERED: HYDROmorphone 2 MG/ML VIAL (DILAUDID) ONE (14:32)
--- NOTE | 2021-11-26 14:50 | Progress Note-Post Operative ---
Post-Operative Progess Note Surgeon (s)/Ampoule Washing Machine Operator (s) Surgeon AUGIE SETHI MD Ampoule Washing Machine Operator: gianluca willoughby COGNOS ARCHITECT Pre-Operative Diagnosis Morbid obesity, HTN, DM, MARCE Post-Operative Diagnosis same Procedure & Operative Findings Date of Procedure 11/26/21 Procedure Performed/Findings laparoscopic gastric sleeve resection. Anesthesia Type get Estimated Blood Loss Estimated blood loss (mL): minimal Specimens/Packing Specimens Removed stomach AUGIE SETHI MD Nov 26, 2021 14:50
[2021-11-26] MEDS ORDERED: SEVOFLURANE (ULTANE) 15 ML INHAL SOLN ONE (14:56)
[2021-11-26] MEDS ORDERED: HYDROmorphone 2 MG/ML VIAL (DILAUDID) IV ONE (15:00)
[2021-11-26] MEDS ORDERED: fentaNYL INJ 100 MCG/2 ML AMP IVP ONE (15:00)
[2021-11-26] MEDS ORDERED: PROMETHAZINE INJ 25 MG/ML (PHENERGAN) AMP IVP ONE (15:00)
--- NOTE | 2021-11-26 15:02 | Anesthesia-General Post-Op ---
General Patient Condition Mental Status/LOC: Same as Preop Cardiovascular: Satisfactory Nausea/Vomiting: Absent Respiratory: Satisfactory Pain: Controlled Complications: Absent Post Op Complications Complications None Follow Up Care/Instructions Patient Instructions None needed. Anesthesia/Patient Condition Patient Condition Patient is doing well, C/O some nausea which is common for this procedure, stable vital signs, no apparent adverse anesthesia problems. SEYMOUR PALACIOS DO Nov 26, 2021 15:02
[2021-11-26] MEDS: ONDANSETRON 4 MG/2 ML (SDV) Z0FRAN IVP PRN ×2 (15:04→15:21)
[2021-11-26] MEDS ORDERED: LACTATED RINGERS 1,000 ML IV ONE (15:18)
[2021-11-26] MEDS ORDERED: PROMETHAZINE INJ 25 MG/ML (PHENERGAN) AMP ONE (15:35)
[2021-11-26] MEDS: 1/2 NS W/KCL 20 MEQ/L 1,000 ML IV SCH ×3 (17:15→20:12)
[2021-11-26 17:46] LABS: CALCIUM 8.7 MG/DL (8.5-10.1)
[2021-11-26 17:50] LABS: CREATININE SERUM 0.56 MG/DL (0.60-1.30)
[2021-11-26] MEDS: METOCLOPRAMIDE INJ 10 MG/2 ML (REGLAN) IVP SCH ×2 (17:53→23:44)
[2021-11-26] MEDS: metroNIDAZOLE 500MG/100ML IVPB 100 ML IV SCH (17:54)
[2021-11-26] MEDS: ENOXAPARIN 40 MG/0.4 ML (LOVENOX) SYR SC SCH (20:13)
[2021-11-26] MEDS: ONDANSETRON 4 MG/2 ML (SDV) Z0FRAN IVP SCH (20:13)
[2021-11-26] MEDS: ceFAZolin 2 GM IV Premixed 50 ML IV SCH (20:13)
[2021-11-26] MEDS ORDERED: ENOXAPARIN INJECTION 30 MG/0.3 ML SYR SC SCH (21:00)
[2021-11-26] MEDS: RT-ALBUTEROL SULF 2.5 MG/3 ML PRE-MIX VIAL INH SCH (21:01)
--- NOTE | 2021-11-26 21:16 | OPERATIVE REPORT ---
DATE OF SERVICE: 11/26/2021 ATTENDING PRIMARY CARE PHYSICIAN: Dr. Flaquita Forde. PREOPERATIVE DIAGNOSES: Morbid obesity, hypertension, diabetes and sleep apnea. POSTOPERATIVE DIAGNOSES: Morbid obesity, hypertension, diabetes and sleep apnea. PROCEDURE: Laparoscopic gastric sleeve resection. SURGEON: Augie Sethi MD. ANESTHESIA: General endotracheal. ESTIMATED BLOOD LOSS: Minimal. FINDINGS: No hiatal hernia. No liver steatosis. DISPOSITION: The patient tolerated the procedure well. INDICATIONS: The patient is a 61-year-old female known to us. She was seen in 2017 for gastroesophageal reflux disease as well as dysphagia and underwent an EGD and found to have an esophageal stricture and underwent a balloon dilatation. She has struggled with weight and is in our surgical weight loss program for the gastric sleeve resection and does meet the medical criteria for bariatric surgery. She gained the majority of her adult weight in the past 20 years. She has tried a number of diet and exercise attempts with no success. She has tried diet programs including high protein, low carbohydrate as well as low-calorie diets with minimal success. She has tried exercise regimens including walking and treadmill with no success. She has never tried any medications for weight loss. Her medical comorbidities related to her obesity include degenerative joint disease, hypertension, gastroesophageal reflux disease, obstructive sleep apnea, diabetes as well as depression. DESCRIPTION OF PROCEDURE: The patient was brought to the operating room, laid supine on the table. After adequate IV pain and sedative medications and general endotracheal intubation, the abdomen was prepped and draped in standard surgical fashion. A 0.5% Marcaine with epinephrine was used to anesthetize overlying skin on left upper abdominal quadrant and a transverse skin incision made using a 15 blade. An 0 silk suture was applied to the medial aspect of incision for retraction and a Veress needle inserted with a low opening pressure of 0 mmHg. The abdomen was insufflated to 15 mmHg pressure. Veress needle removed and a 5 mm XL trocar placed followed by a 5 mm 45-degree angle laparoscope visualizing the peritoneal cavity. A 4-quadrant abdominal exploration was performed. There was no significant liver steatosis. There was no hiatal hernia identified. Under direct visualization, we then proceeded to place a midabdominal left midline 10 mm port after the skin and peritoneal lining were anesthetized using 0.5% Marcaine with epinephrine and a transverse skin incision made using a 15 blade. In a similar manner, a midabdominal right of midline 15 mm port was placed followed by a right upper abdominal quadrant 5 mm port. The epigastric region was then anesthetized and a transverse skin incision made using 11 blade and a tract created through the abdominal wall layers using a trocar to a 5 mm port and through this opening, a medium sized Nathansen liver retractor was placed and the left lobe of the liver retracted anteriorly and superiorly. The patient was then placed in steep reverse Trendelenburg position. We then measured 6 cm from the pylorus along the greater curvature and marked this area with a marking pen. We then proceeded to enter the lesser sac opening the gastrocolic ligament next to the stomach using the Sonicision. We then proceeded with inferior dissection with the Sonicision until we were approximately 2 cm below our marking. We then proceeded cephalad taking down the short gastric vessels. We also took down the angle of His connective tissue fibers until the left luisito of the diaphragm was identified. Good hemostasis was observed. A 36-Tajik ViSiGi bougie was then placed under direct visualization and directed into the pylorus. This was then placed to suction and used as our staple line guide. We then proceeded with our first portion of the resection using a MILLER 45 mm black load stapler 2 cm below our marking. We then proceeded with two 60 mm black loads followed by a single 60 mm purple load and a 45 mm purple load leaving 2 cm next to the gastroesophageal junction and completing our gastric sleeve resection. Staple line corners were then clipped with 5 mm clips. A leak test was then done to 35 atmospheres of pressure with no leak identified. Tisseel fibrin glue was then placed onto the staple line and the omentum placed onto the staple line. The stomach was removed through the 15 mm port site. The fascia and peritoneum to the 10 to 15 mm port sites were then closed under direct visualization using a Torito-Rosalinda device and 0 Vicryl suture. The abdomen was then desufflated. The remaining ports removed. All skin incisions were closed using 4-0 Monocryl running subcuticular sutures. Wounds were then cleaned and covered with Dermabond. The patient tolerated the procedure well. We will admit her for 23-hour observation and start a JEWEL STAKER pump for pain control. We will also proceed with DVT prophylaxis with early ambulation, calf SCDs as well as Lovenox injections. Tomorrow morning, we will start with phase 1 clear liquid diet. Once when she is able to tolerate 60 mL of clear liquids every 30 minutes, has adequate pain control with oral pain medication and is ambulating well, we will then discharge her home where she will be instructed to follow a phase 1 clear liquid diet for the next 2 weeks. Job ID: [id number] DocumentID: [id number] Dictated Date: 11/26/2021 15:07:41 Timber Sprinkler Date: 11/26/2021 21:15:43 Dictated By: AUGIE SETHI MD
[2021-11-26] MEDS: ENALAPRILAT 2.5 MG/2 ML (VASOTEC) VIAL IV SCH (23:44)
[2021-11-27] VITALS (8 sets, daily range): BP systolic 157–193; BP diastolic 74–90
[2021-11-27] MEDS: ONDANSETRON 4 MG/2 ML (SDV) Z0FRAN IVP SCH ×2 (01:49→08:21)
[2021-11-27] MEDS: metroNIDAZOLE 500MG/100ML IVPB 100 ML IV SCH ×2 (01:49→08:22)
[2021-11-27] MEDS: 1/2 NS W/KCL 20 MEQ/L 1,000 ML IV SCH ×2 (04:47→14:31)
[2021-11-27] MEDS: ceFAZolin 2 GM IV Premixed 50 ML IV SCH ×2 (04:47→12:07)
[2021-11-27] MEDS ORDERED: hydrALAZINE (APESOLINE) 20 MG/ML VIAL IV PRN (05:00)
[2021-11-27] MEDS: METOCLOPRAMIDE INJ 10 MG/2 ML (REGLAN) IVP SCH ×2 (05:11→12:07)
[2021-11-27 05:38] LABS: HEMATOCRIT 41 % (35-52); MEAN CORPUSCULAR HEMOGLOBIN 29 pg (25-34); MEAN CORPUSCULAR HGB CONC 35 g/dL (32-36); MEAN CORPUSCULAR VOLUME 85 fL (80-99); PLATELET COUNT 228 10^3/uL (130-400); WHITE BLOOD COUNT 13.9 10^3/uL (4.3-11.0)
[2021-11-27] MEDS: ENALAPRILAT 2.5 MG/2 ML (VASOTEC) VIAL IV SCH ×2 (06:17→08:58)
[2021-11-27] MEDS: RT-ALBUTEROL SULF 2.5 MG/3 ML PRE-MIX VIAL INH SCH (07:13)
[2021-11-27] MEDS: ENOXAPARIN 40 MG/0.4 ML (LOVENOX) SYR SC SCH (08:22)
[2021-11-27] MEDS ORDERED: PANTOPRAZOLE 40 MG (PROTONIX) VIAL IV SCH (09:00)
[2021-11-27] MEDS ORDERED: SENNA W/DOCUSATE (SENOKOT S) TABLET PO SCH (09:00)
[2021-11-27] MEDS ORDERED: LABETALOL HCL 20 MG/4 ML VIAL IV PRN (11:00)
--- NOTE | 2021-11-27 11:00 | Progress Note ---
Subjective Date Seen by a Provider: Nov 27, 2021 Time Seen by a Provider: 10:00 Subjective/Events-last exam doing well. has some pain issues however tolerable. tolerating phase 1 clear liquid diet. ambulating pretty well. Objective Exam Vital Signs Date Time Temp Pulse Resp B/P (MAP) Pulse Ox O2 Delivery O2 Flow Rate FiO2 11/27/21 08:00 96 Nasal Cannula 2.00 11/27/21 07:15 37.4 81 18 188/74 (112) 97 Nasal Cannula 3.00 11/27/21 07:14 98 Nasal Cannula 3.00 11/27/21 07:00 83 11/27/21 06:17 164/74 (104) 11/27/21 04:01 36.9 66 20 189/79 (115) 97 Nasal Cannula 3.00 11/27/21 02:40 96 Nasal Cannula 3.00 11/27/21 02:39 Nasal Cannula 3.00 11/27/21 01:04 83 157/74 (101) 11/27/21 00:43 86 11/27/21 00:00 36.5 79 18 193/78 (116) 97 Nasal Cannula 3.00 11/26/21 22:47 69 11/26/21 21:01 97 Nasal Cannula 3.00 11/26/21 21:00 Nasal Cannula 3.00 11/26/21 20:05 36.6 73 19 176/96 (122) 95 Nasal Cannula 3.00 11/26/21 19:33 36.6 76 17 182/83 (116) 95 Nasal Cannula 4.00 11/26/21 18:05 36.5 73 20 177/76 (109) 94 Nasal Cannula 3.00 11/26/21 17:05 36.4 77 17 181/85 (117) Nasal Cannula 3.00 11/26/21 16:09 93 Nasal Cannula 3.00 11/26/21 16:07 94 Nasal Cannula 3.00 11/26/21 16:05 36.2 73 20 181/77 (111) 93 Nasal Cannula 3.00 11/26/21 15:50 Nasal Cannula 3 11/26/21 15:50 36.8 20 159/82 (107) 94 Nasal Cannula 3 11/26/21 15:45 Nasal Cannula 3 11/26/21 15:40 20 163/85 (111) 93 Nasal Cannula 3 11/26/21 15:30 Nasal Cannula 3 11/26/21 15:30 20 147/71 (96) 94 Nasal Cannula 3 11/26/21 15:20 20 151/70 (97) 95 5 11/26/21 15:15 OxyMask 4 11/26/21 15:10 20 152/79 (103) 94 OxyMask 5 11/26/21 15:00 OxyMask 6 11/26/21 15:00 20 139/71 (93) 95 OxyMask 6 11/26/21 14:50 37.4 20 152/80 (104) 96 OxyMask 6 11/26/21 14:50 OxyMask 6 11/26/21 11:07 36.1 59 18 151/79 (103) 97 Room Air I & O 11/27/21 07:00 Intake Total 1150 ml Output Total 4125 ml Balance -2975 ml Capillary Refill : Less Than 3 Seconds General Appearance: No Apparent Distress HEENT: PERRL/EOMI Neck: Full Range of Motion Respiratory: Chest Non Tender, Normal Breath Sounds Cardiovascular: Regular Rate, Rhythm Gastrointestinal: normal bowel sounds, soft, tenderness Extremity: Normal Capillary Refill Neurologic/Psychiatric: Alert, Oriented x3 Skin: Normal Color Lymphatic: No Adenopathy Results Lab Laboratory Tests 11/26/21 14:57: Glucometer 156H 11/26/21 16:34: Glucometer 164H 11/26/21 17:20: Sodium Level 141, Potassium Level 3.0L, Chloride Level 105, Carbon Dioxide Level 17L, Anion Gap 19H, Blood Urea Nitrogen 7, Creatinine 0.56L, Estimat Glomerular Filtration Rate 104, BUN/Creatinine Ratio 13, Glucose Level 175H, Calcium Level 8.7 11/26/21 19:59: Glucometer 163H 11/26/21 23:36: Glucometer 166H 11/27/21 03:17: Glucometer 129H 11/27/21 05:28: White Blood Count 13.9H, Red Blood Count 4.76, Hemoglobin 14.0, Hematocrit 41, Mean Corpuscular Volume 85, Mean Corpuscular Hemoglobin 29, Mean Corpuscular Hemoglobin Concent 35, Red Cell Distribution Width 13.6, Platelet Count 228, Mean Platelet Volume 10.0 11/27/21 09:36: Glucometer 143H Assessment/Plan Assessment/Plan Assess & Plan/Chief Complaint s/p laparoscopic gastric sleeve resection. increase ambulation. restart home PO antihypertensive. home soon. continue clearl liquid diet for next 2 weeks. AUGIE SETHI MD Nov 27, 2021 11:00
[2021-11-27] MEDS ORDERED: ONDANSETRON 4 MG/2 ML (SDV) Z0FRAN IVP PRN (11:30)
[2021-11-27] MEDS ORDERED: METOCLOPRAMIDE INJ 10 MG/2 ML (REGLAN) IVP PRN (11:30)
[2021-11-27] MEDS ORDERED: ATENOLOL 50 MG (TENORMIN) TAB PO SCH (12:00)
[2021-11-27] MEDS ORDERED: 1/2 NS W/KCL 20 MEQ/L 1,000 ML IV SCH (14:45)
[2021-11-27] MEDS ORDERED: cloNIDine 0.1 MG (CATAPRES) TAB PO NR (15:00)
[2021-11-27] MEDS ORDERED: fentaNYL INJ 100 MCG/2 ML AMP IVP NR (15:00)
[2021-11-28] MEDS ORDERED: ATENOLOL 50 MG (TENORMIN) TAB PO SCH (09:00)
== END 2021-11-27 16:35 | disposition home or self-care (01) | DRG 621 ==
LOC: EDSTATUS 10:00 → 4TH 10:05 → SURG 10:06 → 4TH 15:39
PROVIDERS: ADMIT Surgery; ATTEND Surgery
PROC: 0DB64Z3 Excision of Stomach, Percutaneous Endoscopic Approach, Vertical (ICD-10-PCS; principal; 2021-11-26 12:53)
DX: E66.01 Morbid (severe) obesity due to excess calories (principal); M19.90 Unspecified osteoarthritis, unspecified site; I10 Essential (primary) hypertension; K21.9 Gastro-esophageal reflux disease without esophagitis; F32.A Depression, unspecified; F41.9 Anxiety disorder, unspecified; G47.33 Obstructive sleep apnea (adult) (pediatric); E11.9 Type 2 diabetes mellitus without complications; Z86.73 Personal history of transient ischemic attack (TIA), and cerebral infarction without residual deficits; Z68.42 Body mass index [BMI] 45.0-49.9, adult
CPT/HCPCS: 36415; 80048; 82947; 85027; 87081; 94640; 94760